=== PATIENT | female | born 1995 | race Caucasian/White ===

== ENCOUNTER 2016-04-11 10:27 | Emergency (ER) | payer OTHER ==
[2016-04-11 10:36] VITALS: RESP 18
[2016-04-11] MEDS ORDERED: IBUPROFEN 600 MG TAB PO STA (11:02)
--- NOTE | 2016-04-11 11:18 | ED ---
General Adult HPI - General Chief complaint: ENT Stated complaint: left ear pain Time Seen by Provider: 04/11/16 10:56 Source: patient, RN notes reviewed Mode of arrival: ambulatory Limitations: no limitations - History of Present Illness Initial comments: Patient 21-year-old female who presents emergency room today with a chief complaint of cough congestion with a sore throat and left-sided ear pain 2-3 days. Patient does admit that she's had positive sputum production with green in color. Admits to increased pain to her left ear over the last day. Patient denies any drainage or discharge. Patient does admit to body aches and chills. Patient denies any recorded temperatures. She denies any other complaints or symptoms. Patient denies any recent fever, shortness of breath, chest pain, back pain, abdominal pain, nausea or vomiting, numbness or tingling, dysuria or hematuria, constipation or diarrhea, headaches or visual changes, or any other complaints. - Related Data Previous Rx's Medication Instructions Recorded Benzonatate [Tessalon Perles] 100 mg PO TID PRN #12 capsule 04/11/16 Ibuprofen [Motrin] 600 mg PO Q6HR PRN #40 day 04/11/16 Allergies Allergy/AdvReac Type Severity Reaction Status Date / Time No Known Allergies Allergy Verified 04/11/16 11:00 Review of Systems ROS Statement: Those systems with pertinent positive or pertinent negative responses have been documented in the HPI. ROS Other: All systems not noted in ROS Statement are negative. Past Medical History Past Medical History: No Reported History History of Any Multi-Drug Resistant Organisms: None Reported Past Surgical History: Section, Tonsillectomy Past Psychological History: Anxiety Smoking Status: Current every day smoker Past Alcohol Use History: Occasional Past Drug Use History: None Reported General Exam - General Exam Comments Initial Comments: General: The patient is awake and alert, in no distress, and does not appear acutely ill. Eye: Pupils are equal, round and reactive to light, extra-ocular movements are intact. No nystagmus. There is normal conjunctiva bilaterally. No signs of icterus. Ears, nose, mouth and throat: There are moist mucous membranes and no oral lesions. TMs clear bilaterally. Mild redness to the posterior pharynx no sign of exudate. Uvula midline. Patient swallows without difficulty. Neck: The neck is supple, there is no tenderness or JVD. Cardiovascular: There is a regular rate and rhythm. No murmur, rub or gallop is appreciated. Respiratory: Lungs are clear to auscultation, respirations are non-labored, breath sounds are equal. No wheezes, stridor, rales, or rhonchi. Gastrointestinal: Soft, non-distended, non-tender abdomen without masses or organomegaly noted. There is no rebound or guarding present. No CVA tenderness. Bowel sounds are unremarkable. Musculoskeletal: Normal ROM, no tenderness. Strength 5/5. Sensation intact. Pulses equal bilaterally 2+. Neurological: A&O x 3. CN II-XII intact, There are no obvious motor or sensory deficits. Coordination appears grossly intact. Speech is normal. Skin: Skin is warm and dry and no rashes or lesions are noted. Psychiatric: Cooperative, appropriate mood & affect, normal judgment. Limitations: no limitations Course Vital Signs 04/11/16 10:33 Temperature 97.6 F Pulse Rate 90 Respiratory 18 Rate Blood Pressure 112/74 O2 Sat by Pulse 96 Oximetry Medical Decision Making - Medical Decision Making Patient reexamined at this time shows no signs of distress. Influenza, strep, and chest x-ray negative for any acute abnormalities. Results discussed with patient. Advised most likely Viral illness. Advised [id number] medications of Tylenol Motrin. Patient requesting cough medication will be given a prescription for Tessalon Perles. Advised to follow-up family doctor return here to emergency room if any symptoms increase or worsen. - Lab Data Lab Results 04/11/16 04/11/16 04/11/16 Range/Units 11:20 11:20 11:20 Urine HCG, Qual Not Detected (Not Detectd) Influenza Type A RNA Not Detected (Not Detectd) Influenza Type B (PCR) Not Detected (Not Detectd) Group A Strep Rapid Negative (Negative) Disposition Clinical Impression: Upper respiratory infection Disposition: HOME SELF-CARE Condition: Good Instructions: Upper Respiratory Infection (ED) Additional Instructions: Please use medication as discussed. Please follow-up with family doctor in the next 2 days of symptoms have not improved. Please return to emergency room if the symptoms increase or worsen or for any other concerns. Prescriptions: Benzonatate [Tessalon Perles] 100 mg PO TID PRN #12 capsule PRN Reason: Cough Ibuprofen [Motrin] 600 mg PO Q6HR PRN #40 day PRN Reason: Pain Time of Disposition: 12:13
--- NOTE | 2016-04-11 11:48 | XR ---
EXAMINATION TYPE: XR chest 2V DATE OF EXAM: 04/11/2016 11:35 AM COMPARISON: NONE TECHNIQUE: PA and lateral views submitted. HISTORY: Cough FINDINGS: The lungs are clear and there is no pneumothorax, pleural effusion, or focal pneumonia. IMPRESSION: 1. No acute process.
[2016-04-11 12:23] VITALS: BP 131/71; PULSE 78; TEMP 97.5
== END 2016-04-11 12:23 | disposition home or self-care (01) ==
LOC: EC 10:27
DX: J06.9 Acute upper respiratory infection, unspecified (principal); F17.200 Nicotine dependence, unspecified, uncomplicated
CPT/HCPCS: 71020; 81025; 87081; 87430; 87502; 99283